=== PATIENT | female | born 1980 | race Hispanic/Latino ===

== ENCOUNTER → 2024-03-27 | Outpatient (CLI) | payer MEDICAID | END | disposition home or self-care (01) | LOC: RAH 11:39 | PROVIDERS: ATTEND Internal Medicine | DX: Z12.31 Encounter for screening mammogram for malignant neoplasm of breast (principal); R92.30 Dense breasts, unspecified; R92.323 Mammographic fibroglandular density, bilateral breasts | CPT/HCPCS: 77067 ==

== ENCOUNTER → 2024-04-04 | Outpatient (CLI) | payer MEDICAID | END | disposition home or self-care (01) | LOC: SHCH 12:42 → EDUNIT# 13:00 | PROVIDERS: ATTEND Internal Medicine Cardiovascular Disease | DX: I08.3 Combined rheumatic disorders of mitral, aortic and tricuspid valves (principal); R07.9 Chest pain, unspecified | CPT/HCPCS: 93306 ==